=== PATIENT | female | born 1990 | race Caucasian/White ===

== ENCOUNTER 2016-11-08 22:07 | Inpatient (IN) ==
[2016-11-08] MEDS ORDERED: KETOROLAC 30 MG/1 ML VIAL ONE (23:18)
[2016-11-08] MEDS ORDERED: HYDROmorphone 2 MG/1 ML VIAL ONE (23:18)
[2016-11-08] MEDS ORDERED: ONDANSETRON 4 MG/2 ML VIAL ONE (23:18)
[2016-11-08] MEDS ORDERED: ONDANSETRON 4 MG/2 ML VIAL IV STA (23:21)
[2016-11-08] MEDS ORDERED: HYDROmorphone 2 MG/1 ML VIAL IV STA (23:21)
[2016-11-08] MEDS ORDERED: SODIUM CHLORIDE 0.9% 2,000 ML IV STA (23:21)
[2016-11-08] MEDS ORDERED: KETOROLAC 30 MG/1 ML VIAL IV STA (23:21)
[2016-11-08 23:52] LABS: Calcium 8.9 MG/DL (8.5-10.1); Magnesium 1.7 MG/DL (1.8-2.4); Osmolality,Calculated 273.8 MOS/KG (273-304); Potassium 4.1 MMOL/L (3.5-5.1)
--- NOTE | 2016-11-09 00:11 | Emergency Department Note ---
Cody Claros Brittany, am scribing for, and in the presence of, Winston Dumont MD 23 :27. Julia Claros Hans, MD, personally performed the services described in this documentation, ascribed by Alondra Ross in my presence, and it is both accurate and complete . Arrival - Arrival Chief Complaint: Abdominal / Flank Pain Stated Complaint: cant hold anything down ED Nursing Triage Note: pt presented to triage ambulatory with c/o n/v and L flank pain. pt was dx with Kidney stone earlier today in ER. pt states unable to keep meds down. Mode of Arrival: Ambulatory Limitations: No Limitations Source: Patient, RN Notes Reviewed Time Seen by Provider: 11/08/16 23:11 - History of Present Illness HPI Narrative: Patient is a 26 y/o white female presenting to the ED for further evaluation of persistent N/V and L Flank Pain. Patient reports that she was diagnosed with Kidney Stone earlier today here in the ER. Patient states that she has been unable to keep any of her rx medications or fluids down. Patient reports that she's had some dysuria as well when she is able to urinate. She states that while here in the ER today Toradol did not touch her pain. She notes that upon arrival home pain was tolerable, but within the past 3-4 hours pain has become more severe and intolerable. Patient does have a history significant for Kidney Stones. Patient also reports MHx of HTN and Idiopathic Tachycardia with which she is compliant with taking Beta Blockers. Patient states that she is a patient of Dr. Hudson for recurrent syncopal episodes . Patient reports that she had a CT Chest performed and was found to have a possible mass around her heart. She notes that she is to have a MRI of the chest performed for confirmation at the end of this month. Patient has no other complaint/pain. Date of Last Menstrual Period: 11/05/16 Allergies/Adverse Reactions: Allergies Allergy/AdvReac Type Severity Reaction Status Date / Time No Known Allergies Allergy Verified 11/08/16 04:01 Home Medications: Home Medications Medication Instructions Recorded Confirmed Type Duloxetine HCl [Duloxetine] 60 mg PO DAILY 06/16/15 07/11/15 History Metoprolol Succinate [Metoprolol 25 mg PO DAILY 06/16/15 07/11/15 History Succinate] Clindamycin Cap [Cleocin Cap] 300 mg PO Q8HR #30 capsule 05/28/16 Rx Sulfameth/Trimeth 800-160 Tab 1 tablet PO BID #20 tablet 05/28/16 Rx [Bactrim Ds Tab] traMADol TAB [Ultram] 50 mg PO Q6H PRN #12 tablet 05/28/16 Rx HYDROcodone/ACETAMIN 7.5-325 1 tablet PO Q6H PRN #20 tablet 11/08/16 Rx [[place] 7.5-325] Ondansetron [Ondansetron Odt] 8 mg PO Q4H PRN #10 tab.rapdis 11/08/16 Rx Tamsulosin [Flomax] 0.4 mg PO DAILY #20 capsule 11/08/16 Rx Review of System - Review of System 12 point system: reviewed and no additional remarkable complaints except as stated - Review of System Respiratory: Absent: respiratory distress Cardiovascular: Absent: chest pain Gastrointestinal: Present: nausea, vomiting Genitourinary female: Absent: dysuria, frequency, urgency Musculoskeletal: Present: back pain (l flank). Absent: arm pain, leg pain, neck pain Medical,Surgical,& Family Hx - Medical History Cardio: History of: Hypertension Psychological: History of: Depression Genitourinary: History of: Kidney Stones - Surgical History Reproductive Surgeries: Surgical HX of;: Breast Surgery (breast reduction 2014) - Social History Smoking Status: Never smoker Frequency of Alcohol Use: None Type of Drug Use: None Exam Vital Signs: Vital Signs Temperature 98.2 F 11/08/16 23:45 Pulse Rate 110 H 11/08/16 23:45 Respiratory Rate 20 11/08/16 23:45 Blood Pressure 116/85 11/08/16 23:45 O2 Sat by Pulse Oximetry 98 11/08/16 22:22 - General General appearance: alert, in no apparent distress - Head Head exam: Present: atraumatic, normocephalic, normal inspection - Eye Eye exam: Present: normal appearance, PERRL, EOMI - ENT ENT exam: Present: normal exam, normal oropharynx - Neck Neck exam: Present: normal inspection, full ROM, trachea midline - Chest Chest inspection: Present: normal inspection, symmetric chest wall rise - Respiratory Respiratory exam: Present: normal lung sounds bilaterally - Cardiovascular Cardiovascular exam: Present: normal rhythm, tachycardia, normal heart sounds. Absent: regular rate, murmur - Abdominal Exam Abdominal exam: Present: soft, tenderness (left sided abdominal tenderness), normal bowel sounds - Extremities Exam Extremities exam: Present: normal inspection - Back Exam Back exam: Present: CVA tenderness (L) - Neurological Exam Neurological exam: Present: alert, oriented X3, CN II-XII intact. Absent: motor sensory deficit - Psychiatric Psychiatric exam: Present: normal affect, normal mood - Skin Skin exam: Present: warm, dry Course Course Narrative: This patient was evaluated in the ER with a repeat BMP that showed a creatinine of 1.2. She had already received some Toradol in the ER and we gave her 2 L of fluid. I recommended admission since she was unable to tolerate p.o. intake as an outpatient and has bounced back to the ER since this morning. Dr. Dexter was agreeable to admission and will see her in the ER. Results - Labs CBC & BMP: 11/08/16 23:19 Disposition Clinical Impression: Kidney stone Case discussed with: patient, patient's family Disposition: Still a Patient Condition: Stable Time of Disposition: 00:11
[2016-11-09] MEDS ORDERED: ONDANSETRON 4 MG/2 ML VIAL IV PRN (02:06)
--- NOTE | 2016-11-09 02:12 | Hospitalist History & Physical ---
Assessment and Plan (1) Calculus of kidney Status: Acute Current Visit: No (2) Renal colic on left side Status: Acute Current Visit: No (3) Hematuria Status: Acute Assessment and plan: We will admit patient our service for gentle hydration. Will consult urology. Recheck labs in the morning. Patient received 2 L normal saline and is feeling much better. Hopefully she will be able to maintain oral intake. Current Visit: No History of Present Illness Chief complaint: Flank pain History of present illness: Ms. Alejo is a 26 year old female with past medical history significant for kidney stones, hypertension, idiopathic tachycardia, familiar increased cholesterol and history of C. difficile who presents to our ER tonight. Apparently patient had been in here last night with similar complaints. Patient complaining about flank pain. She was discharged with a diagnosis of kidney stone. It was in her ureter that showed some mild hydronephrosis. She was not able to maintain oral hydration and she returned back. I was consulted to admit her. Patient had increase in her creatinine. 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 Home Medications Medication Instructions Recorded Confirmed Type Duloxetine HCl [Duloxetine] 60 mg PO DAILY 06/16/15 07/11/15 History Metoprolol Succinate [Metoprolol 25 mg PO DAILY 06/16/15 07/11/15 History Succinate] Clindamycin Cap [Cleocin Cap] 300 mg PO Q8HR #30 capsule 05/28/16 Rx Sulfameth/Trimeth 800-160 Tab 1 tablet PO BID #20 tablet 05/28/16 Rx [Bactrim Ds Tab] traMADol TAB [Ultram] 50 mg PO Q6H PRN #12 tablet 05/28/16 Rx HYDROcodone/ACETAMIN 7.5-325 1 tablet PO Q6H PRN #20 tablet 11/08/16 Rx [[place] 7.5-325] Ondansetron [Ondansetron Odt] 8 mg PO Q4H PRN #10 tab.rapdis 11/08/16 Rx Tamsulosin [Flomax] 0.4 mg PO DAILY #20 capsule 11/08/16 Rx Allergies Allergy/AdvReac Type Severity Reaction Status Date / Time No Known Allergies Allergy Verified 11/08/16 04:01 Medical,Surgical,& Family Hx - Medical History Cardio: History of: Hypertension Psychological: History of: Depression Genitourinary: History of: Kidney Stones - Surgical History Reproductive Surgeries: Surgical HX of;: Breast Surgery (breast reduction 2014) - Family History Family History: Reports;: Family Heart Disease, Family Hematology, Family Hypertension - Social History Smoking Status: Never smoker Frequency of Alcohol Use: None Type of Drug Use: None 12 point system: reviewed and no additional remarkable complaints except as stated Exam - Constitutional Vitals: Period Temp Pulse Resp BP Sys/Angel Pulse Ox Last 24 Hr 98.2 F-98.8 F 110-132 16-20 108-116/70-85 98 General appearance: no acute distress - Head Head exam: Present: normal inspection - Eye Eye exam: Present: EOMI Pupils: Present: DOMITILA - ENT ENT exam: Present: normal exam - Neck Neck exam: Present: normal inspection - Respiratory Respiratory exam: Present: clear to auscultation bilaterally - Cardiovascular Cardiovascular exam: Present: tachycardia - GI/Abdominal GI/Abdominal exam: Present: normal bowel sounds, tenderness (Left lower quadrant mild) - Extremities Exam Extremities exam: Present: normal inspection - Back Exam Back exam: Present: normal inspection. Absent: CVA tenderness (L), CVA tenderness (R) - Neurological Exam Neurological exam: Present: alert, oriented X3 - Psychiatric Psychiatric exam: Present: normal affect - Skin Skin exam: Present: normal color Results - Labs CBC & BMP: 11/08/16 23:19
[2016-11-09] MEDS: SODIUM CHLORIDE 0.9% 1,000 ML IV SCH ×3 (03:19→22:20)
--- NOTE | 2016-11-09 10:50 | Hospitalist Progress Note ---
Assessment and Plan - Time spent with patient Time spent with patient: Less than 30 minutes (1) Calculus of kidney Status: Acute Assessment and plan: Abdominal CT performed on 11/08/2016 revealed 2 mm calculus in the left ureter. Urology has been consulted. Will await their recommendations while continuing gentle IV fluid hydration. Current Visit: No (2) Renal colic on left side Status: Acute Assessment and plan: As above. Current Visit: No (3) Migraine Status: Acute Assessment and plan: Patient reports intractable migraine was unrelieved by Imitrex. Will add Tylenol until BMP results come back to avoid renal insult. Current Visit: Yes Hospitalist: Subjective Interval history: Patient seen and examined in her room today. On exam, the patient was resting in bed with lights dimmed. She reports that she has a "terrible migraine" for which she has attempted Imitrex with no relief. She does report continued left- sided flank pain. She continues to have dysuria. CBC and BMP were not collected this a.m. We will repeat those that to monitor creatinine status. Patient reports no other acute events overnight. Exam - Constitutional Vitals: Period Temp Pulse Resp BP Sys/Angel Pulse Ox Last 24 Hr 97.6 F-98.8 F 97-132 16-24 84-116/53-85 93-100 Exam: General: No acute distress Heart: RRR; no gallops, murmurs, rubs, clicks Lungs: CTA bilaterally; no wheezes, rales, rhonchi Abdomen: NBS, soft, left-sided flank tenderness, no masses Extremities: no cyanosis, edema, clubbing Neuro: AAOx3 Results - Labs CBC & BMP: 11/08/16 23:19 Lab Results: I have reviewed the past 24 hour labs Labs: Repeat labs stat pending
[2016-11-09] MEDS ORDERED: ACETAMINOPHEN 325 MG TABLET PO PRN (10:59)
[2016-11-09 11:35] LABS: Basophils % 0.3 % (0.0-0.8); Eosinophils % 0.1 % (0.00-10.9); Hematocrit 28.8 VOL% (35.7-47.0); Immature Granulocytes % 0.8 %; Lymphocytes # 0.6 10*3/uL (1.4-4.0); Lymphocytes % 4.6 % (21.3-54.2); Mean Corpuscular Hemoglobin 29 PG (27-34); Mean Corpuscular Volume 83.7 FL (87-102); Mean Platelet Volume 10.1 FL (9.6-12.0); Monocytes # 0.3 10*3/uL (0.11-0.8); Monocytes % 2.2 % (1.7-12.7); Neutrophils # 11.6 10*3/uL (1.4-7.4); Platelet Count 201 T/CUMM (130-400); Red Cell Distribution Width 13.3 % (9.3-17.3); White Blood Count 12.6 T/CUMM (4-12)
[2016-11-09 11:38] LABS: Hemoglobin 9.8 GM/DL (12.0-16.0); Red Blood Count 3.44 MC/CUMM (3.8-5.5)
[2016-11-09 11:55] LABS: Band Neutrophils 8 % (0-10); Lymphocytes 6 % (20-55); Segmented Neutrophils 84 % (50-85); Total Cells Counted 100
[2016-11-09 11:56] LABS: Hypochromasia 1+; Ovalocytes Slight; Platelet Estimate Normal
[2016-11-09 12:02] LABS: Calcium 7.7 MG/DL (8.5-10.1); Osmolality,Calculated 278.4 MOS/KG (273-304); Potassium 3.4 MMOL/L (3.5-5.1)
[2016-11-09] MEDS ORDERED: SODIUM CHLORIDE 0.9% 1,000 ML IV ONE (13:00)
--- NOTE | 2016-11-09 13:08 | Urology Consultation ---
History of Present Illness - Data of Consult Consult date: 11/09/16 - Consult Narrative History of present illness: Ms. Alejo is a 26 year old female This 26-year-old white female is seen in consultation because of a small left distal ureteral stone. She was originally seen in the emergency room and diagnosed and was sent home and had returned because of persistent vomiting. Her primary complaint at the present time now is headache. She has a past history of having passed a stone fairly easily several years ago and no other stones are seen on the CT scan. The 2 mm stone is not seen on KUB. The patient should be able to pass this and I am going to recommend we continue IV fluids medication for pain and nausea continue Flomax and strain her urine CC: Alee Elizabeth MD - Home Medications and Allergies Home Medications: Home Medications Medication Instructions Recorded Confirmed Type traMADol TAB [Ultram] 50 mg PO Q6H PRN #12 tablet 05/28/16 11/09/16 Rx HYDROcodone/ACETAMIN 7.5-325 1 tablet PO Q6H PRN #20 tablet 11/08/16 11/09/16 Rx [[place] 7.5-325] Ondansetron [Ondansetron Odt] 8 mg PO Q4H PRN #10 tab.rapdis 11/08/16 11/09/16 Rx Tamsulosin [Flomax] 0.4 mg PO DAILY #20 capsule 11/08/16 11/09/16 Rx Ethinyl Estradiol/Drospirenone 1 each PO DAILY 11/09/16 11/09/16 History [Krystal 28 Tablet] Metoprolol Tartrate 1 each PO DAILY 11/09/16 11/09/16 History Multivitamin [Multivitamins] 1 each PO DAILY 11/09/16 11/09/16 History Allergies/Adverse Reactions: Allergies Allergy/AdvReac Type Severity Reaction Status Date / Time No Known Allergies Allergy Verified 11/08/16 04:01 Exam - Constitutional Vitals: Period Temp Pulse Resp BP Sys/Angel Pulse Ox Last 24 Hr 97.6 F-98.8 F 97-132 16-24 84-116/48-85 92-100 Results - Labs CBC & BMP: 11/09/16 11:10 11/09/16 11:10
[2016-11-09] MEDS ORDERED: POTASSIUM CHLORIDE 20 MEQ TABLET PO ONE (14:07)
[2016-11-09] MEDS ORDERED: traMADol 50 MG TABLET PO PRN (14:08)
[2016-11-09] MEDS ORDERED: PROMETHAZINE 25 MG/1 ML VIAL IM ONE (14:09)
[2016-11-09] MEDS ORDERED: KETOROLAC 30 MG/1 ML VIAL IV ONE (14:09)
[2016-11-09] MEDS: TAMSULOSIN 0.4 MG CAPSULE PO SCH (20:22)
[2016-11-10 06:57] LABS: Basophils % 0.2 % (0.0-0.8); Eosinophils % 0.1 % (0.00-10.9); Hematocrit 27.3 VOL% (35.7-47.0); Hemoglobin 9.4 GM/DL (12.0-16.0); Immature Granulocytes % 0.9 %; Immature Granulocytes Absolute 0.08 #; Lymphocytes # 0.6 10*3/uL (1.4-4.0); Lymphocytes % 6.4 % (21.3-54.2); Mean Corpuscular HGB Conc 34.4 GM/DL (32-36); Mean Corpuscular Hemoglobin 29 PG (27-34); Mean Corpuscular Volume 83.5 FL (87-102); Mean Platelet Volume 10.9 FL (9.6-12.0); Monocytes # 0.4 10*3/uL (0.11-0.8); Monocytes % 4.1 % (1.7-12.7); Neutrophils # 7.6 10*3/uL (1.4-7.4); Neutrophils % 88.3 % (38.7-73.9); Platelet Count 167 T/CUMM (130-400); Red Blood Count 3.27 MC/CUMM (3.8-5.5); Red Cell Distribution Width 13.6 % (9.3-17.3); White Blood Count 8.6 T/CUMM (4-12)
[2016-11-10 07:21] LABS: Band Neutrophils 35 % (0-10); Hypochromasia 1+; Lymphocytes 2 % (20-55); Platelet Estimate Decreased; Segmented Neutrophils 60 % (50-85); Total Cells Counted 100
[2016-11-10 07:25] LABS: Osmolality,Calculated 281.3 MOS/KG (273-304); Potassium 3.3 MMOL/L (3.5-5.1)
[2016-11-10 07:44] VITALS: BP 114/72
--- NOTE | 2016-11-10 07:46 | Urology Progress Note ---
Urology - PN: Subj Interval history: The patient's flank pain is better. The stone may be in the bladder. She has prescriptions for pain and Flomax from the emergency room and she will continue these post discharge. It is okay with me to discharge the patient as needed. I will follow him in the office Exam - Constitutional Vitals: Period Temp Pulse Resp BP Sys/Angel Pulse Ox Last 24 Hr 97.6 F-99.5 F 87-101 18-20 89-114/48-72 89-99 Results - Labs CBC & BMP: 11/10/16 05:41 11/10/16 05:41
[2016-11-10] MEDS ORDERED: METOPROLOL TARTRATE 50 MG TABLET PO SCH (09:00)
[2016-11-10] MEDS ORDERED: TAMSULOSIN 0.4 MG CAPSULE PO SCH (09:00)
[2016-11-10] MEDS ORDERED: MULTIVITAMIN (CENTRUM) TABLET PO SCH (09:00)
--- NOTE | 2016-11-10 09:27 | Discharge Summary ---
Hospital Course - Hospital Course Hospital Course: Ms Alejo presented with renal colic and had failed outpatient treatment due to pain, nausea, vomiting and dehydration. She had stone in left ureter seen on CT. She was treated with IVF and pain meds and the stone has passed at this point. She will see Dr Amin in the clinic. She also has migraine headaches and had one start while in the ER. It was the same as her previous headaches though very intense which is less common for her. It was not relieved with tryptans at home and got worse after Dilaudid in the ER. She had relief with phenergan yesterday and will go home with some phenergan pills to take at home which she prefers. She does not want to see Dr Lamar in hospital or as outpatient at this time because she expects her headache to go away when she gets home and sleeps. Her mother is in agreement and they plan to call his office for an apppintment if her migraines become something she can't take care of as she has been doing. she will see Dr Torres and discuss whether she should change her control as it has effected her migraines. - Time spent with patient Time with patient DS: Greater than 30 minutes (exam, discharge planning, medicine reconciliation, documentation) Diagnosis - Discharge Diagnosis (1) Calculus of kidney Status: Resolved (2) Migraine Status: Resolved Specialty Discharge - Follow Up or Referrals Follow up with: Rusty Lamar MD [Physician] - (if needed ) Holden Hogan [Primary Care Provider] - 5 Days Salvatore Amin MD [Physician] - 11/24/16 10:15 am Luiza Torres MD [Physician] - Discharge Plan - Discharge Data Disposition: Disch To Home/Self Care Condition at Discharge: Stable Discharge Diet: advance to your usual diet Activity: resume usual activities as tolerated - Discharge Medications New Promethazine Tab [Phenergan Tab] 25 mg PO Q6H PRN #10 tablet PRN Reason: headache, nausea Continue traMADol TAB [Ultram] 50 mg PO Q6H PRN #12 tablet PRN Reason: Pain Tamsulosin [Flomax] 0.4 mg PO DAILY #20 capsule Ethinyl Estradiol/Drospirenone [Krystal 28 Tablet] 1 each PO DAILY Metoprolol Tartrate 1 each PO DAILY Multivitamin [Multivitamins] 1 each PO DAILY Discontinued HYDROcodone/ACETAMIN 7.5-325 [[place] 7.5-325] 1 tablet PO Q6H PRN #20 tablet PRN Reason: Pain Ondansetron [Ondansetron Odt] 8 mg PO Q4H PRN #10 tab.rapdis PRN Reason: Nausea - Follow Up or Referral Follow Up: Rusty Lamar MD [Physician] - (if needed ) Holden Hogan [Primary Care Provider] - 5 Days Salvatore Amin MD [Physician] - 11/24/16 10:15 am Luiza Torres MD [Physician] - - Forms/Instructions Exam - Constitutional Vitals: Period Temp Pulse Resp BP Sys/Angel Pulse Ox Last 24 Hr 97.6 F-99.5 F 87-101 18-20 89-114/48-72 89-99 General appearance: normal weight, no acute distress - Eye Eye exam: Present: EOMI, scleral icterus - Respiratory Respiratory exam: Present: clear to auscultation bilaterally - Cardiovascular Cardiovascular exam: Present: regular rate and rhythm - GI/Abdominal GI/Abdominal exam: Present: normal bowel sounds, soft. Absent: tenderness - Extremities Exam Extremities exam: Absent: edema - Neurological Exam Neurological exam: Present: alert, oriented X3 - Skin Skin exam: Present: warm, dry Discharge Results Labs on day of discharge: Labs from last 24 hours 11/10/16 11/10/16 11/10/16 05:41 05:41 03:26 WBC 8.6 D RBC 3.27 L Hgb 9.4 L Hct 27.3 L MCV 83.5 L MCH 29 MCHC 34.4 RDW 13.6 Plt Count 167 MPV 10.9 Neut % (Auto) 88.3 H Lymph % (Auto) 6.4 L Mclean % (Auto) 4.1 Eos % (Auto) 0.1 Baso % (Auto) 0.2 Neut # (Auto) 7.6 H Lymph # (Auto) 0.6 L [place]clean # (Auto) 0.4 Eos # (Auto) 0.0 Baso # (Auto) 0.0 Total Counted 100 Immature Gran % 0.9 Nucleated RBC % 0.0 Immature Gran # 0.08 Segmented Neutrophils 60 Band Neutrophils 35 H Lymphocytes 2 L Monocytes 3 Nucleated RBCs # 0.00 Platelet Estimate Decreased Immature Plt Fraction 0.0 Hypochromasia 1+ Ovalocytes Morphology Comment Sodium 141 Potassium 3.3 L Chloride 111 H Carbon Dioxide 23 Anion Gap 10.3 BUN 9 Creatinine 1.00 GFR Calculation 86 BUN/Creatinine Ratio 9.00 Glucose 127 H POC Glucose 129 H Calculated Osmolality 281.3 Calcium 8.0 L 11/09/16 11/09/16 11:10 11:10 WBC 12.6 H RBC 3.44 L D Hgb 9.8 L D Hct 28.8 L MCV 83.7 L MCH 29 MCHC 34.0 RDW 13.3 Plt Count 201 D MPV 10.1 Neut % (Auto) 92.0 H Lymph % (Auto) 4.6 L Mclean % (Auto) 2.2 Eos % (Auto) 0.1 Baso % (Auto) 0.3 Neut # (Auto) 11.6 H Lymph # (Auto) 0.6 L Mclean # (Auto) 0.3 Eos # (Auto) 0.0 Baso # (Auto) 0.0 Total Counted 100 Immature Gran % 0.8 Nucleated RBC % 0.0 Immature Gran # 0.10 Segmented Neutrophils 84 Band Neutrophils 8 Lymphocytes 6 L Monocytes 2 Nucleated RBCs # 0.00 Platelet Estimate Normal Immature Plt Fraction 0.0 Hypochromasia 1+ Ovalocytes Slight Morphology Comment Sodium 140 Potassium 3.4 L Chloride 111 H Carbon Dioxide 22 Anion Gap 10.4 BUN 9 Creatinine 1.00 GFR Calculation 86 BUN/Creatinine Ratio 9.00 Glucose 112 H POC Glucose Calculated Osmolality 278.4 Calcium 7.7 L DS: Provider Date of admission: 11/09/16 02:06 Primary care physician: Holden Hogan Attending physician on admission: Seth Dexter MD Consults: 11/09/16 02:06 Consult to Physician [CONS] Routine Comment: Kidney stone Consulting Provider: Salvatore Amin Consult to Specialist Group: Urology When should Consulting Provider be notified: In am Person Notified: garrick Date Notified: 11/09/16 Time Notified: 09:18 Discharging clinician: Alee Elizabeth MD
[2016-11-10] MEDS: TAMSULOSIN 0.4 MG CAPSULE PO SCH (09:33)
[2016-11-10] MEDS: SODIUM CHLORIDE 0.9% 1,000 ML IV SCH (09:37)
== END 2016-11-10 10:20 | disposition home or self-care (01) | DRG 694 ==
LOC: N.ED 22:07 → N.EDINP 11-09 02:06 → SUATTDRO 11-09 02:06 → N.5E 11-09 02:29
PROVIDERS: ADMIT Internal Medicine; ATTEND Internal Medicine